=== PATIENT | female | born 1995 | race Caucasian/White ===

== ENCOUNTER 2017-04-22 13:08 | Outpatient (CLI) | payer MEDICAID ==
[~2017-04-22] VITALS: Ht 162.6 cm; Wt 73.2 kg
[2017-04-22 13:32] VITALS: Ht 162.6 cm; Wt 73.2 kg
[2017-04-22 13:33] VITALS: BP 113/65; PULSE 88; RESP 20
[2017-04-22] MEDS ORDERED: DEXTROSE 5%-LR 1,000 ML IV SCH (14:45)
--- NOTE | 2017-04-23 10:54 | NSTRPT ---
NST Information Datetime Report Generated by CPN: 04/23/2017 10:54 Datetime: 04/22/2017 11:05 NST Information EGA: 38.5 Test Number: 6 Time on Monitor: 04/22/2017 11:36 Time off Monitor: 04/22/2017 12:23 NST Duration (Min): 47 Reason for NST: Diabetes Mellitus; Other Reason for NST Other: A1DM Test and Monitor Explained: Monitor Explained; Test Explained; Verbalized Understanding; Breastfee ding Info Given Pulse: 81 Resp: 20 SBP: 116 DBP: 59 Test Evaluation NST Interventions: Food Given; Reposition Patient; Acoustic Stimulation Patient States Movement: Present Contraction Frequency: occasional FHR Baseline : 135 Variability: Moderate 6-25bpm Accelerations: 10X10 Decelerations: None FHR Category: Category II NST Results: Questionable Comments: To u/s. FBS 76. CHRISTINA 10.7. Cephalic presentation. EFM on. Accels did not meet 15x15 cri teria despite pt eating food and turning side to side. Variability decreased to minimal. Pt to go and be monitored and evaluated at the hospital..Pt has no questions. 1215-Report to Dr Hannah, jaja Loyd recommends extended EFM, order received. Report called to Eugenia HAYNES/charge. 1227-Pt to Triage/[facility] for extended efm and has follow up NST appt. Comments: To u/s. FBS 76. CHRISTINA 10.7. Cephalic presentation. EFM on. Accels did not meet 15x15 cri teria despite pt eating food and turning side to side. Variability decreased to minimal. Pt to go to be monitored and evaluated at the hospital at [facility]. Pt has no questions. Electronically Signed By E-Signature: with User ID: [id number] Datetime: 04/18/2017 09:36 NST Information EGA: 38.1 NST Duration (Min): 35 Datetime: 04/16/2017 10:26 NST Information EGA: 37.6 NST Duration (Min): 57 Datetime: 04/12/2017 14:20 NST Information EGA: 37.2 NST Duration (Min): 27 Datetime: 04/08/2017 14:10 NST Information EGA: 36.5 NST Duration (Min): 33 Datetime: 04/04/2017 14:40 NST Information EGA: 36.1 Datetime: 04/04/2017 14:20 NST Duration (Min): 30
--- NOTE | 2017-05-13 12:27 | PN ---
Triage Information Date/Time Reason for visit: 38 weeks and 5 days complicated with a 1 DM, referred from NST unit for extended NST Weeks of Gestation 38 weeks 5 days /Para Diabetes: gestational Diabetes management: diet controlled Hypertention: none Objective Heart Rate: 130's Heart Rate Comments Reactive NST patient sent to triage for extended observation, NST reactive patient discharged by the laborist caption writer recommended follow-up at NST clinic 2 times per week Contractions: None Disposition: Discharge DEVIKA MAYES MD May 13, 2017 12:27
== END 2017-04-22 16:30 | disposition home or self-care (01) ==
LOC: OBT 13:08 → OBG 13:08 → OBT 16:30
PROVIDERS: ATTEND Obstetrics & Gynecology
DX: O24.410 Gestational diabetes mellitus in pregnancy, diet controlled (principal); Z3A.38 38 weeks gestation of pregnancy
CPT/HCPCS: 36415; 82962; 96360; 96361; J7121; Z7500; G0463